=== PATIENT | female | born 1995 ===

== ENCOUNTER 2021-08-24 01:43 | Emergency (ER) | payer BC ==
[2021-08-24 01:53] VITALS: BP 117/77
[2021-08-24 02:47] LABS: Hematocrit 47.4 % (30.3-42.9); Hemoglobin 15.5 gm/dl (10.1-14.3); Mean Corpuscular HGB Conc 33 % (30-34); Mean Corpuscular Volume 89 fl (79-97); Platelet Count 247 K/mm3 (140-440); Red Blood Count 5.35 M/mm3 (3.65-5.03); Red Cell Distribution Width 13.4 % (13.2-15.2)
[2021-08-24 03:09] LABS: Alanine Aminotransferase 14 units/L (7-56); Albumin 5.2 g/dL (3.9-5); BUN/Creatinine Ratio 21; Blood Urea Nitrogen 21 mg/dL (7-17); Calcium 10.2 mg/dL (8.4-10.2); Hemolysis Index 11
[2021-08-24 03:47] LABS: Band Neutrophils # (Manual) 0.5 K/mm3; Basophils % (Manual) 0 % (0.0-1.8); Platelet Estimate Consistent w Auto; RBC Morphology Normal; Total Cells Counted 100
[2021-08-24 09:23] LABS: Bacteria,Urine 1+ /HPF (Negative); Bilirubin,Urine NEG (Negative); Blood,Urine LG (Negative); Color,Urine Yellow (Yellow); Mucus,Urine FEW /HPF; Urobilinogen,Urine < 2.0 mg/dL (<2.0)
[2021-08-24 09:41] LABS: HCG Qualitative,Urine Positive (Negative)
[2021-08-24 09:43] LABS: Protein,Urine Color Interference mg/dL (Negative)
== END 2021-08-24 11:13 ==
LOC: ED 01:43
DX: R11.2 Nausea with vomiting, unspecified (principal); Z53.21 Procedure and treatment not carried out due to patient leaving prior to being seen by health care provider
CPT/HCPCS: 36415; 80053; 81001; 81025; 85007; 85025; 87086